=== PATIENT | female | born 1990 | race Caucasian/White ===

== ENCOUNTER 2019-10-30 14:14 | Emergency (ER) | payer BC, SELFPAY ==
[2019-10-30 14:28] VITALS: BP 122/65; PULSE 97; RESP 16; TEMP 37.2; O2SAT 100
[2019-10-30] MEDS: TETANUS,DIPHTHERIA,AC PERTUSSIS ADULT (0.5 ML) BOOSTRIX IM (14:47)
--- NOTE | 2019-10-30 14:47 | ED.SKABFB ---
HPI - Skin/Abscess/Foreign Bdy General Chief complaint: Wound/Laceration Stated complaint: right finger lac Time Seen by Provider: 10/30/19 14:33 Source: patient and RN notes reviewed Mode of arrival: ambulatory Limitations: no limitations History of Present Illness HPI narrative: Patient presents today with a laceration to her right third finger that was sustained last night on a knife when she was opening up a can of corn.She initially cleaned with peroxide. States she became concerned that it was infected due to redness this morning. She had wrapped the laceration in medical tape last night as she did not have any other dressing at home. She has tried no medications for symptoms prior to arrival.She is not up-to-date on her tetanus vaccine. MD complaint: laceration Related Data Home Medications Medication Instructions Recorded Confirmed No Home Medications 10/30/19 10/30/19 Allergies Allergy/AdvReac Type Severity Reaction Status Date / Time No Known Allergies Allergy Unverified 10/30/19 14:28 Review of Systems Review of Systems: Narrative: CONSTITUTIONAL: Denies body aches, fever, chills, or sweats. EYES: Denies visual changes, redness, or discharge. ENT: Denies rhinorrhea, congestion, sore throat, or otalgia. CARDIOVASCULAR: Denies chest pain, palpitations, or edema. RESPIRATORY: Denies cough or dyspnea. GASTROINTESTINAL: Denies abdominal pain, nausea, vomiting, or diarrhea. GENITOURINARY: Denies dysuria or hematuria. SKIN: Denies rash, itching. +Laceration to right third finger MUSCULOSKELETAL: Denies back pain, joint pain, or myalgia. NEUROLOGIC: Denies headache, numbness, tingling, or weakness. PSYCH: Denies depression or anxiety. PMFSH Comments At time of signature, I have reviewed and agree with nursing past medical, surgical, social and family history unless otherwise noted. Please see nursing chart for further information. There is no relevant family history pertinent to the presenting complaint Exam Narrative: Exam Narrative: GENERAL: Well-appearing, well-nourished, and in no acute distress. HEAD: Normocephalic, atraumatic. EYES: EOMI. No redness or drainage. Conjunctivae normal. ENT: Mucous membranes pink and moist. NECK: Normal AROM. CHEST: No respiratory distress. EXTREMITIES: Normal range of motion. No edema. SKIN: Warm, dry, no rash. Capillary refill normal. Normal skin turgor. 1 cm linear laceration to the pad of the right third finger. No erythema or ecchymosis noted. No active drainage. No fluctuance or induration. No signs of infection.Distal sensation intact. Capillary refill normal. Full range of motion. NEURO: No focal deficits. Alert and oriented x3. Gait steady. PSYCH: Normal affect. No signs of depression or anxiety. Course Vital Signs Vital signs: Vital Signs Temperature 98.9 F 10/30/19 14:28 Pulse Rate 97 10/30/19 14:28 Respiratory Rate 16 10/30/19 14:28 Blood Pressure 122/65 10/30/19 14:28 Pulse Oximetry 100 10/30/19 14:28 Temperature 98.9 F 10/30/19 14:28 Pulse Rate 97 10/30/19 14:28 Respiratory Rate 16 10/30/19 14:28 Blood Pressure 122/65 10/30/19 14:28 Pulse Oximetry 100 10/30/19 14:28 Reviewed. Pt has been instructed to follow up with her PCP regarding her elevated blood pressure today. MDM - Skin/Abscess/Foreign Bdy Differential Diagnosis Differential diagnosis: Likely other (Laceration, cellulitis, abscess, skin avulsion) Critical Care Time Critical Care Time Critical Care Time: No Discharge Plan Discharge Clinical Impression: Finger laceration Qualifiers: Encounter type: initial encounter Finger: middle finger Damage to nail status: without damage Foreign body presence: without foreign body Laterality: right Qualified Code(s): S61.212A - Laceration without foreign body of right middle finger without damage to nail, initial encounter Patient Disposition: Home, Self-Care Condition: Stable Instructio
== END 2019-10-30 15:04 | disposition home or self-care (01) ==
PROVIDERS: Emergency Provider Nurse Practitioner
DX: S61.212A Laceration without foreign body of right middle finger without damage to nail, initial encounter (principal); W26.0XXA Contact with knife, initial encounter; Z23 Encounter for immunization
CPT/HCPCS: 90471; 90715; 99212; G0463

== ENCOUNTER 2020-02-15 07:40 | Outpatient (CLI) | payer BC, SELFPAY ==
--- NOTE | ~2020-02-15 | CT_ITS ---
EXAMINATION: CTA brain EXAM DATE: 02/15/2020 08:30 INDICATION: Headaches. TECHNIQUE: Noncontrast head CT. Spiral CT angiogram cerebral arteries performed with intravenous in jection of 100 mL Omnipaque 350. Axial, coronal and sagittal images reviewed. Additional reformatted images created on dedicated 3-D workstation. The dose-length product (DLP) for this examination was 950.49 mGy-cm. The exposure was tailored according to patient size, and iterative reconstruction ( ASIR) was used as additional dose reduction technique. Correlation is made to head CT 09/22/2018. FINDINGS: Some motion below the skull base and at the vertex. Intracranial vertebrobasilar, carotid arteries are without stenosis. Vertebral arteries codominant. There is no distal carotid or vertebral basilar arterial dissection or fibromuscular dysplasia. There are no cerebral artery aneurysms. Ther e is symmetric cerebral artery arborization. The sagittal, transverse and sigmoid sinuses enhance nor maribell, no venous sinus thrombosis. Internal cerebral veins also enhance normally. There is no acute intraparenchymal hemorrhage. No evidence of intraparenchymal brain mass lesion. N o evidence of acute infarction. There is no mass effect or midline shift. There is no obstructive hyd rocephalus suspected. There are no extra-axial collections. There are no calvarial acute fractures. IMPRESSION: 1. No acute intracranial findings or cerebral artery aneurysm. Reviewed, dictated and finalized at location A.
== END 2020-02-15 07:41 | disposition home or self-care (01) ==
PROVIDERS: PCP Family Medicine; Visit Provider Psychiatry & Neurology Neurology
DX: R51 Headache (principal)
CPT/HCPCS: 70496; Q9967

== ENCOUNTER 2020-03-07 15:23 | Outpatient (CLI) | payer BC, SELFPAY ==
--- NOTE | ~2020-03-07 | MR_ITS ---
EXAMINATION: MR cervical spine wo con EXAM DATE: 03/07/2020 16:43 INDICATION: Neck pain, numbness and tingling. TECHNIQUE: Multi-sequential, multiplanar MR images of the cervical spine were obtained without contra st. Axial T2, axial T2 MERGE sequence. Sagittal T1, T2, T2 fat saturation images also obtained. Th ere is no prior study for comparison. FINDINGS: The vertebral bodies are aligned in the AP dimension. Vertebral body and disc heights are well-maintained. The spinal cord signal intensity and intrinsic morphology is normal. Cervicomedullar y junction is normal in appearance. There are no suspicious marrow signal abnormalities. Paraspinal s oft tissue is unremarkable. Level by level evaluation: C2-C3: Disc does not extend beyond the endplate margin. Uncovertebral joint arthropathy: None. Facet joint arthropathy: None. Neural foraminal stenosis: No stenosis. Central canal stenosis: No stenosis. C3-C4: Disc does not extend beyond the endplate margin. Uncovertebral joint arthropathy: Mild left. Facet joint arthropathy: Minimal bilateral. Neural foraminal stenosis: Mild left. Central canal stenosis: No stenosis. C4-C5: Disc does not extend beyond the endplate margin. Uncovertebral joint arthropathy: Mild bilateral. Facet joint arthropathy: Minimal bilateral. Neural foraminal stenosis: No stenosis. Central canal stenosis: No stenosis. C5-C6: There is a minimal diffuse disc bulge. Uncovertebral joint arthropathy: Mild bilateral. Facet joint arthropathy: Minimal bilateral. Neural foraminal stenosis: No stenosis. Central canal stenosis: Minimal. C6-C7: Disc does not extend beyond the endplate margin. Uncovertebral joint arthropathy: None. Facet joint arthropathy: Minimal bilateral. Neural foraminal stenosis: No stenosis. Central canal stenosis: No stenosis. C7-T1: Disc does not extend beyond the endplate margin. Uncovertebral joint arthropathy: None. Facet joint arthropathy: Minimal bilateral. Neural foraminal stenosis: No stenosis. Central canal stenosis: No stenosis. IMPRESSION: 1. Minimal cervical spondylosis. Reviewed, dictated and finalized at location A.
--- NOTE | ~2020-03-07 | MR_ITS ---
EXAMINATION: MR brain/brain stem wo con EXAM DATE: 03/07/2020 16:43 INDICATION: Headaches. Neck pain. TECHNIQUE: Magnetic resonance imaging (MRI) of the brain/brain stem obtained without contrast. Sagitt al T1, axial diffusion, gradient echo (T2*), T1, T2, FLAIR sequences obtained. Correlation is made t o CT angiogram 02/15/2020. FINDINGS: There are no areas of restricted diffusion to suggest acute infarction. There is no acute hemorrhage seen on the T2*, a hemosiderin sensitive sequence. No intraparenchymal brain mass. The ve ntricles are normal in size. There are no extra-axial collections. Flow voids are seen in the cereb ral arteries on the T2-weighted sequences consistent with their expected patency. The orbits are unr emarkable. Soft tissue is unremarkable. There are no areas of abnormal enhancement on the postcont rast images. IMPRESSION: Normal brain MRI examination. Reviewed, dictated and finalized at location A.
== END 2020-03-07 15:24 | disposition home or self-care (01) ==
PROVIDERS: PCP Family Medicine; Visit Provider Psychiatry & Neurology Neurology
DX: R20.2 Paresthesia of skin (principal); R51.9 Headache, unspecified
CPT/HCPCS: 70551; 72141

== ENCOUNTER 2020-05-18 16:29 | Emergency (ER) | payer BC, SELFPAY ==
[2020-05-18 16:37] VITALS: BP 131/83; PULSE 82; RESP 16; TEMP 36.6; O2SAT 100
--- NOTE | 2020-05-18 17:13 | ED.GENADULT ---
HPI - General Adult General Chief complaint: Eye Problems Stated complaint: L eye pain Time Seen by Provider: 05/18/20 16:52 History of Present Illness HPI narrative: Patient is a 30-year-old female who presents ER with pain behind her left eye. Ongoing for 3 days since receiving bilateral neck injections with steroids for chronic pain. No change in vision. No flashers or floaters. Pain is worse when she is up and moving around. No photophobia. Patient does have history of migraines but this feels different. No fevers or chills or sweats. No difficulty breathing or swallowing. She contacted the pain management physician in [facility] who did perform the procedure but they have not returned her call. No relief with [place] at home so she came here for further evaluation. Related Data Home Medications Medication Instructions Recorded Confirmed doxepin 05/18/20 gabapentin 900 mg PO TID 05/18/20 05/18/20 hydrocodone-acetaminophen 05/18/20 Allergies Allergy/AdvReac Type Severity Reaction Status Date / Time No Known Allergies Allergy Verified 05/18/20 16:42 Review of Systems Constitutional: Constitutional: Denies chills, Denies fever(s) and Denies weakness Eyes: Eyes: Denies change in vision and Denies photophobia Comments: Left eye pain posteriorly. Gastrointestinal: Gastrointestinal: Denies nausea and Denies vomiting PMFSH Past Medical History Medical History (Updated 05/18/20 @ 18:37 by Jerel Lee MD) Anxiety Migraine Pelvic floor dysfunction Surgical History Surgical History (Updated 05/18/20 @ 17:18 by Jerel Lee MD) No history of previous surgery Social History Social History (Updated 05/18/20 @ 17:18 by Jerel Lee MD) Smoking status: Never smoker Gender identity (if verbalized by the patient): Female Exam Narrative: Exam Narrative: GENERAL: Well-appearing, well-nourished, and in no acute distress. HEAD: Normocephalic, atraumatic. EYES: PERRLA and EOMI. Left eye pressure 23 mmHg. NECK: Supple. No swelling, no cellulitis or visual evidence of injection site injury. Nontender to palpation over the sternocleidomastoids and anterior aspect of the neck where injection occurred. Normal carotid pulses. NEURO: No focal deficits. Alert and oriented x3. PSYCH: Normal mood and affect. Course Course Emergency Course: Tx as migrain with toradol/reglan/benadryl. Pt with improvemnt. Recommend f/u with her pain management doctor. If loss of vision go to [facility]. Vital Signs Vital signs: Vital Signs Temperature 97.9 F 05/18/20 16:37 Pulse Rate 82 05/18/20 16:37 Respiratory Rate 16 05/18/20 16:37 Blood Pressure 131/83 05/18/20 16:37 Pulse Oximetry 100 05/18/20 16:37 Temperature 97.9 F 05/18/20 16:37 Pulse Rate 82 05/18/20 16:37 Respiratory Rate 16 05/18/20 16:37 Blood Pressure 131/83 05/18/20 16:37 Pulse Oximetry 100 05/18/20 16:37 Medical Decision Making Vital Signs Vital Signs: Vital Signs Temperature 97.9 F 05/18/20 16:37 Pulse Rate 82 05/18/20 16:37 Respiratory Rate 16 05/18/20 16:37 Blood Pressure 131/83 05/18/20 16:37 Pulse Oximetry 100 05/18/20 16:37 Temperature 97.9 F 05/18/20 16:37 Pulse Rate 82 05/18/20 16:37 Respiratory Rate 16 05/18/20 16:37 Blood Pressure 131/83 05/18/20 16:37 Pulse Oximetry 100 05/18/20 16:37 Discharge Plan Discharge Clinical Impression: Migraine Patient Disposition: Home, Self-Care Condition: Stable Instructions: Migraine Headache (ED) Additional Instructions: Return to the ER if you have fever over 101F, you cannot see, you lose consciousness, or you cannot breathe/swallow. Prescriptions: No Action gabapentin 600 mg tablet 900 mg PO TID RF: 0 doxepin 10 mg capsule RF: 0 hydrocodone-acetaminophen 7.5-325 mg tablet RF: 0 Follow-up/Referrals: Sloane Ivy MD [Primary Care Provider] -
[2020-05-18] MEDS: SODIUM CHLORIDE 0.9% IV 1,000 ML 999 ML IV CONT (17:31)
[2020-05-18] MEDS: diphenhydrAMINE HCl INJ 50 MG/ML VIAL 25 MG IV PUSH (17:32)
[2020-05-18] MEDS: KETOROLAC 30 MG/ML VIAL (*BKC) IV PUSH (17:32)
[2020-05-18] MEDS: METOCLOPRAMIDE HCL INJ 10 MG/2 ML VIAL IV PUSH (17:33)
== END 2020-05-18 18:53 | disposition home or self-care (01) ==
PROVIDERS: Emergency Provider Emergency Medicine; PCP Family Medicine
DX: G43.909 Migraine, unspecified, not intractable, without status migrainosus (principal)
CPT/HCPCS: 96361; 96374; 96375; 99284; J1200; J1885; J2765; J7030

== ENCOUNTER 2020-06-10 16:49 | Emergency (ER) | payer BC, SELFPAY ==
[2020-06-10 16:50] VITALS: BP 137/75; PULSE 90; RESP 17; TEMP 37.2; O2SAT 97
--- NOTE | 2020-06-10 18:31 | ED.GENADULT ---
HPI - General Adult General Chief complaint: Neck Pain/Injury Stated complaint: left jaw pain Time Seen by Provider: 06/10/20 17:04 Source: patient Mode of arrival: ambulatory Limitations: no limitations History of Present Illness HPI narrative: Patient 30-year-old female who presented per EMS for evaluation of left ear and neck pain patient had injection for occipital neuralgia several weeks ago by her pain specialist patient notes during the procedure she developed pain in the jaw and down the neck which has persisted today felt heaviness of the chest patient denies other illness or complaint on arrival is tearful and anxious appearing patient has not taken anything other than gabapentin for her symptoms has follow-up with primary care and neurology in the near future patient denies new medication or any injury or recent illness Related Data Home Medications Medication Instructions Recorded Confirmed doxepin 05/18/20 gabapentin 900 mg PO TID 05/18/20 05/18/20 hydrocodone-acetaminophen 05/18/20 Allergies Allergy/AdvReac Type Severity Reaction Status Date / Time No Known Allergies Allergy Verified 05/18/20 16:42 Review of Systems Review of Systems: All systems reviewed & are unremarkable except as noted in HPI and below PMFSH Past Medical History Medical History Anxiety Migraine Pelvic floor dysfunction Surgical History Surgical History No history of previous surgery Social History Social History Smoking status: Never smoker Gender identity (if verbalized by the patient): Female Exam Narrative: Exam Narrative: GENERAL: Well-appearing, well-nourished, uncomfortable and in no acute distress. HEAD: Normocephalic, atraumatic. Tenderness of the angle of the left jaw no deformities noted in the prepostauricular or cervical region EYES: PERRLA and EOMI. ENT: Nares clear, no rhinorrhea or epistaxis. Mucous membranes moist. Oropharynx without tonsillar hypertrophy exudate or other lesions. Bilateral TMs pearly [place] nonbulging. No angioedema in the oropharynx NECK: Supple. No adenopathy or masses. No stridor CHEST: Clear to auscultation. No respiratory distress. No wheezes rales or rhonchi HEART: Regular rate and rhythm. No murmur heard. EXTREMITIES: Normal range of motion. No edema. SKIN: Warm, dry, no rash. NEURO: No focal deficits. Alert and oriented x3. Cranial nerves II through XII grossly intact PSYCH: Normal mood and affect. Course Course Emergency Course: Patient was evaluated in the emergency department prior to receiving her IV blood draw interventions eloped from the ER Vital Signs Vital signs: Vital Signs Temperature 98.9 F 06/10/20 16:50 Pulse Rate 90 06/10/20 16:50 Respiratory Rate 17 06/10/20 16:50 Blood Pressure 137/75 06/10/20 16:50 Pulse Oximetry 97 06/10/20 16:50 Temperature 98.9 F 06/10/20 16:50 Pulse Rate 90 06/10/20 16:50 Respiratory Rate 17 06/10/20 16:50 Blood Pressure 137/75 06/10/20 16:50 Pulse Oximetry 97 06/10/20 16:50 Medical Decision Making [facility] Narrative Medical decision making narrative: Patient eloped prior to receiving her evaluation Vital Signs Vital Signs: Vital Signs Temperature 98.9 F 06/10/20 16:50 Pulse Rate 90 06/10/20 16:50 Respiratory Rate 17 06/10/20 16:50 Blood Pressure 137/75 06/10/20 16:50 Pulse Oximetry 97 06/10/20 16:50 Temperature 98.9 F 06/10/20 16:50 Pulse Rate 90 06/10/20 16:50 Respiratory Rate 17 06/10/20 16:50 Blood Pressure 137/75 06/10/20 16:50 Pulse Oximetry 97 06/10/20 16:50 Discharge Plan Discharge Clinical Impression: Acute neck pain Patient Disposition: Elopement After Seen by Prov Prescriptions: No Action gabapentin 600 mg tablet 900 mg PO TID RF: 0 doxepin
--- NOTE | 2020-06-10 18:31 | PC.NURSE ---
This RN into pts room to start IV and give medication. Pts gown is on chair and pt is not in room. Pt was not in restroom.. This RN returned medication and informed charge nurse.
== END 2020-06-10 18:18 | disposition left against medical advice (07) ==
PROVIDERS: Emergency Provider Emergency Medicine; PCP Family Medicine
DX: M54.2 Cervicalgia (principal)
CPT/HCPCS: 99281